=== PATIENT | male | born 1960 | race Caucasian/White ===

== ENCOUNTER → 2018-06-21 | Outpatient (CLI) | payer OTHER ==
[~2018-06-21] MED LIST: ACCUNEB SO1.25 MG/1 INH; AUGMENTIN 875-1 EACH PO; BENZTROPINE MESY2 MG PO; CALCIUM 600 +1 EAC1 PO; DILTIAZEM 24HR120 M2 PO; FLOMAX0.4 MG PO; FUROSEMIDE 20 M20 M1 PO; IRON325 PO; KLOR-CON 10 ER10 MEQ PO; LASIX 20 MG TAB20 MG PO; LISINOPRIL10 MG PO; METOPROLOL SUC100 MG PO; PANTOPRAZOLE SO40 M1 PO; RISPERDAL4 M1 PO; SYMBICORT160 MCG/4. INH; TYLENOL325 MG PO; XARELTO20 MG PO; ZOSYN 3.3753.375 GM IV
== END | disposition home or self-care (01) ==
LOC: RAD 13:13
DX: Z48.03 Encounter for change or removal of drains (principal); K80.00 Calculus of gallbladder with acute cholecystitis without obstruction; Z79.899 Other long term (current) drug therapy; Z98.890 Other specified postprocedural states; Z87.891 Personal history of nicotine dependence

== ENCOUNTER 2021-02-07 14:52 | Inpatient (IN) | payer OTHER ==
[2021-02-07] VITALS (20 sets, daily range): BP systolic 89–121; BP diastolic 47–77
[~2021-02-07] VITALS: Ht 182.9 cm; Wt 106.1 kg
[2021-02-07] MEDS ORDERED: BUMEX2 MG PO (18:50)
[2021-02-07] MEDS ORDERED: DILAUDID1 MG/1 M1 PO (19:10)
[2021-02-07] MEDS ORDERED: LORAZEPAM2 MG/1 ML PO (19:11)
[2021-02-07] MEDS ORDERED: NITROSTAT0.4 M1 SUBLING (19:14)
[2021-02-07] MEDS ORDERED: ONDANSETRON ODT8 MG PO (19:15)
--- NOTE | 2021-02-07 19:53 | NUR ---
[facility] ARRIVED AT 1650 ON 35% FIO2 BIPAP. PATIENT LETHARGIC, ONLY ANSWERED HIS NAME. RN NOTES THAT PENIS IS FILAYED IN HALF, AND TERRY IS IN PLACE WITH YEAST APPEARANCE GROWING IN URETHRA AND IN SKIN FOLDS IN GROIN. RN SPOKE WITH SISTER, WHO STATED HOSPICE AND HOME HEALTH NURSES HAVE BEEN PLACING CREAM ON TERRY, BUT THAT TERRY WAS IN PLACE FOR TWO AND A HALF MONTHS. SISTER STATED HER BROTHER WAS HOSPICE, BUT SHE WAS NOT ABLE TO CARE FOR HIM DUE TO BEING TRAUMATIZED FROM TAKING CARE OF HER MOTHER WITH END OF LIFE CARE, BUT HER BROTHER HAS STATED HE WANTED TO GO TO [facility]. SISTER STATED PATIENT HAD BEEN ON HOSPICE FOR TWO YEARS, BUT SHE CALLED WHEN HIS OXYGEN WAS LOW, OR HIS LIPS WERE BLUE AND HE WASN'T BREATHING RIGHT. PATIENT'S SISTER SPOKE WITH MD REGARDING HOSPICE, DNR STATUS, AND END OF LIFE CARE. RN NOTES THAT AT THE END OF SHIFT, SISTER TOLD THIS RN THAT SHE WANTS PATIENT COMFORTABLE, AND THAT COMFORT CARE WAS ACCEPTABLE.
[2021-02-07 20:07] LABS: BE(vivo) 13.2 mmol/L (-2 to +3); HCO3 42.9 mmol/L (22.0-26.0); PCO2 83.6 mmHg (35.0-45.0); PO2 83.7 mmHg (80.0-100.0); pH 7.328 (7.360-7.450)
[2021-02-07 20:23] LABS: HEMOGLOBIN 11.7 gm/dL (14.0-18.0); MCH 30.2 pg (26.0-34.0); MCHC 33.6 g/dL (28.0-37.0); RBC 3.89 mil/uL (4.50-6.00); RDW 14.6 % (10.5-14.5)
[2021-02-07 20:36] LABS: ALBUMIN 2.8 g/dL (3.4-5.0); ANION GAP < 0 mmol/L (7-16); BUN 7 mg/dL (7-18); CALCIUM 8.9 mg/dL (8.5-10.1); CHLORIDE 78 mmol/L (98-107); CO2 44 mmol/L (21-32); CREATININE 0.8 mg/dL (0.7-1.3); GLUCOSE 122 mg/dL (74-106); MAGNESIUM 1.3 mg/dL (1.8-2.4); POTASSIUM 4.7 mmol/L (3.5-5.1); SGOT 24 U/L (15-37); SGPT 10 U/L (16-63); TOTAL BILIRUBIN 0.4 mg/dL (0.2-1.0); TOTAL PROTEIN 6.9 g/dL (6.4-8.2)
[2021-02-07 20:38] LABS: SODIUM 118 mmol/L (136-145)
[2021-02-07 20:44] LABS: APTT 41.3 Seconds (24.5-32.8); INR 1.36; PROTIME 14.6 Seconds (10.5-12.1)
[2021-02-07 21:38] LABS: FOLIC ACID 6.8 ng/mL (8.6-58.9)
--- NOTE | 2021-02-07 21:59 | NUR ---
This RN spoke to family member, Charu, at 2130. Discussed current patient status and plan for possible comfort care tomorrow. This RN clarified plan with Dr. Mays to initiate orders and reevaluate and discuss with family in the morning. Will continue to monitor.
--- NOTE | 2021-02-07 22:01 | NUR ---
This RN spoke to the urologist supplier relationship director, Dr. Duque regarding new consult. Discussed penile erosion and catheter. Instructed to leave catheter in place and physician will round tomorrow.
--- NOTE | 2021-02-07 22:03 | NUR ---
This RN consulted Dr. Lennon regarding patient. Reported critical ABGs. No new orders received and doctor will round in the am.
--- NOTE | 2021-02-07 23:03 | NUR ---
Changed catheter urometer and drainage bag. At 2100, this RN dumped 1100 from catheter. Unsure how long it is has been since it was dumped and counted.
[2021-02-08] VITALS (20 sets, daily range): BP systolic 90–136; BP diastolic 56–84
[2021-02-08 05:02] LABS: HEMATOCRIT 39.5 % (42.0-52.0); MCH 29.9 pg (26.0-34.0); MCHC 32.9 g/dL (28.0-37.0); RBC 4.34 mil/uL (4.50-6.00); RDW 14.9 % (10.5-14.5); WBC 6.9 thou/uL (4.0-11.0)
[2021-02-08 05:39] LABS: ANION GAP < 0 mmol/L (7-16); BUN 6 mg/dL (7-18); CALCIUM 9.4 mg/dL (8.5-10.1); CHLORIDE 86 mmol/L (98-107); CO2 42 mmol/L (21-32); CREATININE 0.7 mg/dL (0.7-1.3); GLUCOSE 145 mg/dL (74-106); MAGNESIUM 2.7 mg/dL (1.8-2.4); POTASSIUM 4.7 mmol/L (3.5-5.1)
[2021-02-08 06:06] LABS: SODIUM 127 mmol/L (136-145)
--- NOTE | 2021-02-08 07:34 | NUR ---
ORDERS RECEIVED FOR EVAL AND TREAT HOWEVER NOTE THERE IS DISCUSSION ABOUT COMFORT MEASURES. WILL HOLD OFF ON EVALUATION AT THIS TIME UNTIL FURTHER DECISIONS ON PLAN OF CARE ARE MADE
--- NOTE | 2021-02-08 08:17 | NUR ---
Lasha spoke with [facility] adame, phone # [phone] location to get copy of revocation (resend) letter. Notified that hospice having some computer problems and IT is working on it, once they can get into there system they will fax it to [phone] lasha main office.
--- NOTE | 2021-02-08 10:52 | NUR ---
PATIENT WAS LETHARGIC AND NOT APPROPRIATE FOR BEDSIDE SWALLOW EVALUATION THIS MORNING. THERE HAS BEEN DISCUSSION ABOUT COMFORT CARE OR HOSPICE. ST WILL EVALUATE ONCE ALERT IF INDICATED.
[2021-02-08] MEDS ORDERED: XARELTO20 MG PO (11:48)
--- NOTE | 2021-02-08 11:52 | NUR ---
Chart review. visited with nam at bedside, off Bipap and on o2 per nasal cannel. Revoked [facility]- DX COPD, and CHF. Came to Hospital , from [facility]. Discussed during los and am rounds. He lives with his sister julius and [id number]. Have ramp to enter home and DME from hospice at home. Nam ok's with consult for hospice house or GIP here with [facility]. CM spoke with Sister bobbi via phone call, she stated it was discussed last night about doing comfort care here in hospital. she will be up around 5pm today to visit. referral to be sent to [facility]. Will cont. following as needed for dc needs.
--- NOTE | 2021-02-08 13:19 | NUR ---
FAXED REFERRAL AND PHYSICIAN ORDER TO [facility]. CONFIRMED WITH JEAN/LIAISON THAT REFERRAL WAS SENT. THEY WILL CONTACT GABE/INTERNAL WHOLESALER AFTER RECEIVING AND REVIEWING. [facility] P [phone]; FAX [phone]
--- NOTE | 2021-02-08 18:42 | NUR ---
PATIENT WAS SOMULENT THIS AM, BUT THEN WAS ALERT AND CONFUSED (PERHAPS HIS BASELINE). PATIENT WAS EVALUATED BY [facility] FOR GIP, AND WILL BE MOVED TO [facility] AND THEN PLACED IN RESPITE CARE AFTER HE LEAVES THE HOSPITAL. PATIENT HEMODYNAMICALLY STABLE, WILL CONTINUE TO MONITOR.
[2021-02-09 02:00] VITALS: BP 134/77
[2021-02-09 04:00] VITALS: BP 124/61
[2021-02-09 04:20] LABS: ANION GAP < 0 mmol/L (7-16); BUN 8 mg/dL (7-18); CALCIUM 9.1 mg/dL (8.5-10.1); CHLORIDE 92 mmol/L (98-107); CO2 42 mmol/L (21-32); CREATININE 0.7 mg/dL (0.7-1.3); GLUCOSE 132 mg/dL (74-106); SODIUM 133 mmol/L (136-145)
[2021-02-09 06:00] VITALS: BP 96/66
--- NOTE | 2021-02-09 07:48 | NUR ---
At 0030 pt had to be restrained , x 3 nurses at the bedside holding the patient down, Pt had taken off his oxygen and pulse ox , was gasping for air, wheezing with labored breathing, his nails beds and lips were cyanotic, pt could not be re directed due to increased confusion, was thrashing and restless, saying "help me" but same time fighting with nurses refusing nasal cannula or bipap.Soft restraints were applied and patient was temporarily placed on bipap while nurses were in the room, 25 minutes later pt was placed back on 6L nasal cannula and haldol was given per DIRECTOR OF GIFT PLANNING Preston orders. Pt had episodes of sleep after haldol, remained confused and not following directions.
[2021-02-09 08:08] VITALS: BP 129/79
[2021-02-09 15:10] VITALS: BP 133/74; BP 152/92
[2021-02-09 20:13] VITALS: BP 155/85
--- NOTE | 2021-02-10 04:34 | NUR ---
PT TRANSFERED TO CCU M/S ON COMFORTCARE WITH FAMILY AT BEDSIDE EARLIER IN THIS SHIFT AND THEY DECIDED TO GO HOME, PT SEEMED TO CALM DOWN AND RELAX ABLE TO REST WITH PRN MEDS, VS REMAIN STABLE, PT STILL USING ALL ACCESSORY MUSCLES TO BREATH, WILL CON'T TO MONITOR PER PPOC.
[2021-02-10 04:51] VITALS: BP 101/71
[2021-02-10 07:20] VITALS: BP 121/74
--- NOTE | 2021-02-10 18:17 | NUR ---
PT CARE ASSUMED AT 0700. ASSESSMENTS DONE CHARTED. MEDICATION CHARTED. RFA IV. RHYTHM NOT MONITORED. TERRY CATHETER, PENILE MEATUS WOUND PRESENT UPON PT ADMISSION. PT HAD "O" SIGN WITH AGONAL BREATHING. PT AT 1625 ON 02/10/21. NEXT OF KIN NOTIFIED.
== END 2021-02-10 16:25 | DRG 189 ==
LOC: ICU 14:52 → 2N 02-09 10:49
PROVIDERS: ADMIT Internal Medicine; ATTEND Hospitalist
PROC: 5A09357 Assistance with Respiratory Ventilation, Less than 24 Consecutive Hours, Continuous Positive Airway Pressure (ICD-10-PCS; principal; 2021-02-07)
DX: J96.21 Acute and chronic respiratory failure with hypoxia (principal); G92 Toxic encephalopathy; J44.1 Chronic obstructive pulmonary disease with (acute) exacerbation; I48.20 Chronic atrial fibrillation, unspecified; I42.9 Cardiomyopathy, unspecified; E87.1 Hypo-osmolality and hyponatremia; I50.9 Heart failure, unspecified; F20.9 Schizophrenia, unspecified; J96.22 Acute and chronic respiratory failure with hypercapnia; N36.8 Other specified disorders of urethra; Z51.5 Encounter for palliative care; Z66 Do not resuscitate; Z20.822 Contact with and (suspected) exposure to COVID-19; Z79.899 Other long term (current) drug therapy
CPT/HCPCS: 10078; 10081